=== PATIENT | male | born 1960 | race Caucasian/White ===

== ENCOUNTER 2021-01-07 13:57 | Inpatient (IN) ==
[2021-01-07] MEDS ORDERED: THIAMINE 200 MG/2 ML VIAL IV STA (14:28)
[2021-01-07] MEDS ORDERED: MORPHINE 4 MG/1 ML VIAL ONE (14:41)
[2021-01-07] MEDS ORDERED: MORPHINE 4 MG/1 ML VIAL IV STA (14:44)
[2021-01-07 14:55] LABS: Basophils # 0.1 10*3/uL (0.0-0.2); Basophils % 0.6 % (0.0-0.8); Eosinophils # 0.2 10*3/uL (0.0-0.87); Eosinophils % 2.5 % (0.00-10.9); Hematocrit 21.1 VOL% (42.0-52.0); Hemoglobin 7.1 GM/DL (14.0-18.0); Immature Granulocytes % 0.7 %; Immature Granulocytes Absolute 0.06 #; Lymphocytes # 0.8 10*3/uL (1.4-4.0); Mean Corpuscular HGB Conc 33.6 GM/DL (32-36); Mean Corpuscular Volume 97.2 FL (87-102); Mean Platelet Volume 10.7 FL (9.6-12.0); Monocytes % 13.3 % (1.7-12.7); Neutrophils % 72.9 % (38.7-73.9); Platelet Count 70 T/CUMM (130-400); Red Blood Count 2.17 MC/CUMM (3.8-5.5); Red Cell Distribution Width 18.5 % (9.3-17.3)
[2021-01-07 15:06] LABS: Albumin 2.2 G/DL (3.4-5.0); Bilirubin,Total 7.7 MG/DL (0.2-1.0); Calcium 8.5 MG/DL (8.5-10.1); Osmolality,Calculated 259.5 MOS/KG (273-304); Potassium 5.2 MMOL/L (3.5-5.1); Total Protein 4.7 G/DL (5.0-7.5)
[2021-01-07 15:52] LABS: INR 1.6; PT Patient Result 16.5 SECS (9.8-11.9)
[2021-01-07 15:54] LABS: Partial Thromboplastin Time 48.3 SECS (23.9-33.8)
[2021-01-07] MEDS ORDERED: hydrALAZINE 20 MG/1 ML VIAL IV PRN (16:26)
[2021-01-07] MEDS ORDERED: DEXTROSE 50% 25 GM/50 ML VIAL IV PRN (16:26)
[2021-01-07] MEDS ORDERED: NICOTINE 21 MG/24 HR PATCH TRANSDERM PRN (16:26)
[2021-01-07] MEDS ORDERED: diphenhydrAMINE CAP 25 MG CAPSULE PO PRN (16:26)
[2021-01-07] MEDS ORDERED: ALBUTEROL/IPRATROPIUM 3 ML NEB RESP TX PRN (16:26)
[2021-01-07] MEDS ORDERED: BISACODYL 5 MG TABLET PO PRN (16:26)
[2021-01-07] MEDS ORDERED: CALCIUM CARBONATE CHEW 500 MG TABLET PO PRN (16:26)
[2021-01-07] MEDS ORDERED: ALUMINUM/MAGNES/SIMETH MAX STR 30 ML UDCUP PO PRN (16:26)
[2021-01-07] MEDS ORDERED: SIMETHICONE CHEW 125 MG TABLET PO PRN (16:26)
[2021-01-07] MEDS ORDERED: ONDANSETRON 4 MG/2 ML VIAL IV PRN (16:26)
[2021-01-07] MEDS ORDERED: PROMETHAZINE 25 MG TABLET PO PRN (16:26)
[2021-01-07] MEDS ORDERED: GLUCAGON 1 MG VIAL IM PRN (16:26)
[2021-01-07] MEDS ORDERED: guaiFENesin/DM ER 600-30 MG TABLET PO PRN (16:26)
[2021-01-07] MEDS ORDERED: SODIUM CHLORIDE 0.9% 1,000 ML IV PRN (16:34)
[2021-01-07 17:09] LABS: Ferritin 355.1 ng/ml (26-388)
[2021-01-07 17:11] LABS: Folate 17.1 NG/ML (5.38-24.0)
[2021-01-07] MEDS ORDERED: LACTULOSE 20 GM/30 ML UDCUP PO SCH (21:00)
[2021-01-07] MEDS: cefTRIAXone 1,000 MG in SYRINGE 1 EACH IV SCH (22:32)
[2021-01-07] MEDS: AZITHROMYCIN INJ 500 MG in SODIUM CHLORIDE 0.9% 250 ML IV SCH (22:35)
[2021-01-08 05:59] LABS: Basophils # 0.1 10*3/uL (0.0-0.2); Eosinophils # 0.3 10*3/uL (0.0-0.87); Eosinophils % 5.4 % (0.00-10.9); Hematocrit 25.5 VOL% (42.0-52.0); Immature Granulocytes % 0.3 %; Immature Granulocytes Absolute 0.02 #; Lymphocytes # 0.8 10*3/uL (1.4-4.0); Lymphocytes % 13.8 % (21.2-54.2); Mean Corpuscular HGB Conc 34.1 GM/DL (32-36); Mean Corpuscular Volume 92.1 FL (87-102); Mean Platelet Volume 10.8 FL (9.6-12.0); Monocytes % 15.5 % (1.7-12.7); Red Cell Distribution Width 17.3 % (9.3-17.3); White Blood Count 5.9 T/CUMM (4-12)
[2021-01-08 06:11] LABS: Hemoglobin 8.7 GM/DL (14.0-18.0); Platelet Count 46 T/CUMM (130-400); Red Blood Count 2.77 MC/CUMM (3.8-5.5)
[2021-01-08 06:21] LABS: Calcium 8.2 MG/DL (8.5-10.1); Osmolality,Calculated 264.1 MOS/KG (273-304); Potassium 4.8 MMOL/L (3.5-5.1)
[2021-01-08 06:28] LABS: Bilirubin,Direct 2.71 MG/DL (0.0-0.20); Bilirubin,Indirect 5.8 MG/DL (0.0-1.0); Bilirubin,Total 8.5 MG/DL (0.2-1.0); Burr Cells Slight; Hypochromasia 1+; Microcytosis 1+; Ovalocytes Slight; Platelet Estimate Decreased; Total Protein 4.6 G/DL (5.0-7.5)
[2021-01-08 08:58] LABS: % Iron Saturation 99.2 % (18-50)
[2021-01-08 09:44] LABS: Hepatitis B Core IgM Quant 0.45 Index; Hepatitis B Surface Ag Quant < 0.10 Index; Hepatitis B Surface Ag Result Non-Reactive (NonReactive); Hepatitis C Virus Ab Quant 0.06 Index; Hepatitis C Virus Ab Result Non-Reactive (NonReactive)
[2021-01-08] MEDS ORDERED: ALBUMIN 25% 50 GM in PREMIX 1 EACH IV ONE (10:00)
[2021-01-08] MEDS: PANTOPRAZOLE 40 MG TABLET PO SCH (10:01)
[2021-01-08] MEDS: FUROSEMIDE 20 MG TABLET PO SCH (10:01)
[2021-01-08] MEDS: LACTULOSE 20 GM/30 ML UDCUP PO SCH ×4 (10:01→21:48)
[2021-01-08] MEDS: SPIRONOLACTONE 50 MG TABLET PO SCH (10:01)
[2021-01-08] MEDS: cefTRIAXone 1,000 MG in SYRINGE 1 EACH IV SCH (21:48)
[2021-01-08] MEDS: AZITHROMYCIN INJ 500 MG in SODIUM CHLORIDE 0.9% 250 ML IV SCH (22:02)
[2021-01-09] MEDS: LACTULOSE 20 GM/30 ML UDCUP PO SCH ×7 (02:40→22:08)
[2021-01-09 06:46] LABS: Calcium 8.8 MG/DL (8.5-10.1); Osmolality,Calculated 261.4 MOS/KG (273-304); Potassium 4.3 MMOL/L (3.5-5.1)
[2021-01-09 07:48] LABS: Albumin 2.4 G/DL (3.4-5.0); Bilirubin,Total 7.2 MG/DL (0.2-1.0); Calcium 8.7 MG/DL (8.5-10.1); Osmolality,Calculated 262.4 MOS/KG (273-304); Potassium 4.3 MMOL/L (3.5-5.1); Total Protein 4.7 G/DL (5.0-7.5)
[2021-01-09 08:44] LABS: Basophils # 0.1 10*3/uL (0.0-0.2); Basophils % 1.5 % (0.0-0.8); Eosinophils # 0.2 10*3/uL (0.0-0.87); Eosinophils % 5.9 % (0.00-10.9); Hematocrit 22.8 VOL% (42.0-52.0); Hemoglobin 7.6 GM/DL (14.0-18.0); Immature Granulocytes % 0.3 %; Immature Granulocytes Absolute 0.01 #; Lymphocytes # 0.8 10*3/uL (1.4-4.0); Lymphocytes % 22.4 % (21.2-54.2); Mean Corpuscular HGB Conc 33.3 GM/DL (32-36); Mean Corpuscular Volume 94.6 FL (87-102); Mean Platelet Volume 10.7 FL (9.6-12.0); Monocytes % 17.6 % (1.7-12.7); Neutrophils % 52.3 % (38.7-73.9); Red Blood Count 2.41 MC/CUMM (3.8-5.5); Red Cell Distribution Width 17.9 % (9.3-17.3); White Blood Count 3.4 T/CUMM (4-12)
[2021-01-09 08:48] LABS: Platelet Count 40 T/CUMM (130-400)
[2021-01-09 09:11] LABS: Eosinophils 3 % (0-10); Hypochromasia 1+; Lymphocytes 32 % (20-55); Microcytosis 1+; Platelet Estimate Decreased; Segmented Neutrophils 50 % (50-85); Total Cells Counted 100
[2021-01-09] MEDS: SPIRONOLACTONE 50 MG TABLET PO SCH (09:12)
[2021-01-09] MEDS: FUROSEMIDE 20 MG TABLET PO SCH (09:12)
[2021-01-09] MEDS: PANTOPRAZOLE 40 MG TABLET PO SCH (09:12)
[2021-01-09] MEDS ORDERED: LORazepam 2 MG/1 ML VIAL IV PRN (11:44)
[2021-01-09] MEDS ORDERED: SODIUM CHLORIDE 0.9% 1,000 ML IV PRN (11:46)
[2021-01-09] MEDS: MORPHINE 4 MG/1 ML VIAL IV PRN (15:52)
[2021-01-09] MEDS: cefTRIAXone 1,000 MG in SYRINGE 1 EACH IV SCH (22:06)
[2021-01-09] MEDS: AZITHROMYCIN INJ 500 MG in SODIUM CHLORIDE 0.9% 250 ML IV SCH (22:16)
[2021-01-10] MEDS: LACTULOSE 20 GM/30 ML UDCUP PO SCH ×6 (02:54→21:31)
[2021-01-10] MEDS ORDERED: SODIUM CHLORIDE 0.9% 1,000 ML IV PRN ×2 (03:27→07:22)
[2021-01-10 06:11] LABS: Basophils # 0.1 10*3/uL (0.0-0.2); Basophils % 1.2 % (0.0-0.8); Eosinophils # 0.3 10*3/uL (0.0-0.87); Eosinophils % 7.1 % (0.00-10.9); Hematocrit 30.3 VOL% (42.0-52.0); Hemoglobin 10.1 GM/DL (14.0-18.0); Immature Granulocytes % 0.2 %; Immature Granulocytes Absolute 0.01 #; Lymphocytes # 0.8 10*3/uL (1.4-4.0); Lymphocytes % 18.5 % (21.2-54.2); Mean Corpuscular HGB Conc 33.3 GM/DL (32-36); Mean Corpuscular Volume 94.1 FL (87-102); Mean Platelet Volume 10.6 FL (9.6-12.0); Red Blood Count 3.22 MC/CUMM (3.8-5.5); Red Cell Distribution Width 17.2 % (9.3-17.3); White Blood Count 4.1 T/CUMM (4-12)
[2021-01-10 06:15] LABS: INR 1.7; PT Patient Result 17.4 SECS (9.8-11.9)
[2021-01-10 06:20] LABS: Platelet Count 38 T/CUMM (130-400)
[2021-01-10 06:31] LABS: Calcium 8.6 MG/DL (8.5-10.1); Osmolality,Calculated 268.5 MOS/KG (273-304); Potassium 3.9 MMOL/L (3.5-5.1)
[2021-01-10 06:34] LABS: Albumin 2.4 G/DL (3.4-5.0); Bilirubin,Total 8.4 MG/DL (0.2-1.0); Calcium 8.7 MG/DL (8.5-10.1); Osmolality,Calculated 268.5 MOS/KG (273-304); Potassium 3.9 MMOL/L (3.5-5.1); Total Protein 4.8 G/DL (5.0-7.5)
[2021-01-10 06:37] LABS: Eosinophils 8 % (0-10); Lymphocytes 12 % (20-55); Segmented Neutrophils 65 % (50-85); Total Cells Counted 100
[2021-01-10 06:38] LABS: Hypochromasia 1+; Microcytosis 1+; Target Cells Slight
[2021-01-10 06:39] LABS: Acanthocytes Few; Platelet Estimate Decreased
[2021-01-10] MEDS: PANTOPRAZOLE 40 MG TABLET PO SCH (10:57)
[2021-01-10] MEDS: FUROSEMIDE 20 MG TABLET PO SCH (10:57)
[2021-01-10] MEDS: SPIRONOLACTONE 50 MG TABLET PO SCH (10:57)
[2021-01-10] MEDS ORDERED: ALBUMIN 25% 12.5 GM/50 ML VIAL IV ONE (16:58)
[2021-01-10] MEDS ORDERED: ALBUMIN 25% 12.5 GM in PREMIX 1 EACH IV ONE (17:01)
[2021-01-10 18:11] LABS: Neutrophils,Peritoneal Fluid 35 %; RBC,Peritoneal Fluid 30 T/CUMM
[2021-01-10] MEDS: MORPHINE 4 MG/1 ML VIAL IV PRN (19:10)
[2021-01-10 19:46] LABS: Bilirubin,Urine Negative (Negative); Blood, Urine Negative (Negative); Glucose,Urine (UA) Negative (Negative); Hyaline Casts,Urine 9 /LPF (0-3); Ketones,Urine Negative (Negative); Mucus,Urine Occasional /LPF (Occasional); Nitrite,Urine Negative (Negative); Protein,Urine Negative; Squamous Epithelial Cell,Urine Occasional /HPF (0-10); Urine Appearance CLEAR (Clear); Urine Color Amber (Yellow); Urine Specific Gravity 1.011 (1.001-1.035); WBC,Urine 1 /HPF (0-6)
[2021-01-10] MEDS: cefTRIAXone 1,000 MG in SYRINGE 1 EACH IV SCH (20:29)
[2021-01-10] MEDS: AZITHROMYCIN INJ 500 MG in SODIUM CHLORIDE 0.9% 250 ML IV SCH (20:31)
[2021-01-10] MEDS: ZALEPLON 5 MG CAPSULE PO PRN (20:38)
[2021-01-11] MEDS: LACTULOSE 20 GM/30 ML UDCUP PO SCH ×6 (02:19→21:01)
[2021-01-11 06:18] LABS: Basophils # 0.1 10*3/uL (0.0-0.2); Basophils % 1.2 % (0.0-0.8); Eosinophils # 0.2 10*3/uL (0.0-0.87); Eosinophils % 5.1 % (0.00-10.9); Hematocrit 26.8 VOL% (42.0-52.0); Hemoglobin 9.4 GM/DL (14.0-18.0); Immature Granulocytes % 0.2 %; Immature Granulocytes Absolute 0.01 #; Lymphocytes # 0.6 10*3/uL (1.4-4.0); Lymphocytes % 13.3 % (21.2-54.2); Mean Corpuscular HGB Conc 35.1 GM/DL (32-36); Mean Corpuscular Volume 92.4 FL (87-102); Mean Platelet Volume 10.7 FL (9.6-12.0); Monocytes % 17.9 % (1.7-12.7); Neutrophils % 62.3 % (38.7-73.9); Red Cell Distribution Width 17.4 % (9.3-17.3); White Blood Count 4.1 T/CUMM (4-12)
[2021-01-11 06:23] LABS: Platelet Count 36 T/CUMM (130-400)
[2021-01-11 06:40] LABS: Calcium 8.6 MG/DL (8.5-10.1); Hypochromasia 1+; Microcytosis 1+; Osmolality,Calculated 268.4 MOS/KG (273-304); Platelet Estimate Decreased; Potassium 3.4 MMOL/L (3.5-5.1)
[2021-01-11] MEDS: PANTOPRAZOLE 40 MG TABLET PO SCH (09:40)
[2021-01-11] MEDS ORDERED: ALBUMIN 25% 25 GM in PREMIX 1 EACH IV ONE (10:00)
[2021-01-11] MEDS: FUROSEMIDE 20 MG TABLET PO SCH (11:51)
[2021-01-11] MEDS: SPIRONOLACTONE 50 MG TABLET PO SCH (11:53)
[2021-01-11 13:59] LABS: Basophils # 0.1 10*3/uL (0.0-0.2); Basophils % 1.2 % (0.0-0.8); Eosinophils # 0.2 10*3/uL (0.0-0.87); Eosinophils % 4.7 % (0.00-10.9); Hematocrit 27.2 VOL% (42.0-52.0); Hemoglobin 9.4 GM/DL (14.0-18.0); Immature Granulocytes % 0.2 %; Immature Granulocytes Absolute 0.01 #; Lymphocytes # 0.6 10*3/uL (1.4-4.0); Lymphocytes % 13.9 % (21.2-54.2); Mean Corpuscular HGB Conc 34.6 GM/DL (32-36); Mean Corpuscular Volume 92.8 FL (87-102); Mean Platelet Volume 10.4 FL (9.6-12.0); Monocytes % 16.6 % (1.7-12.7); Neutrophils % 63.4 % (38.7-73.9); Red Blood Count 2.93 MC/CUMM (3.8-5.5); Red Cell Distribution Width 17.2 % (9.3-17.3)
[2021-01-11 14:01] LABS: Platelet Count 32 T/CUMM (130-400)
[2021-01-11] MEDS: POTASSIUM CHLORIDE 20 MEQ/15 ML UDCUP PER TUBE PRN ×2 (14:14→21:02)
[2021-01-11 14:21] LABS: Eosinophils 3 % (0-10); Lymphocytes 9 % (20-55); Segmented Neutrophils 80 % (50-85); Total Cells Counted 100
[2021-01-11 14:29] LABS: Burr Cells Slight; Platelet Estimate Decreased; Poikilocytosis Few; Target Cells Slight
[2021-01-11] MEDS: AZITHROMYCIN INJ 500 MG in SODIUM CHLORIDE 0.9% 250 ML IV SCH (21:02)
[2021-01-11] MEDS: ZALEPLON 5 MG CAPSULE PO PRN (21:02)
[2021-01-11] MEDS: cefTRIAXone 1,000 MG in SYRINGE 1 EACH IV SCH (21:02)
[2021-01-12 04:59] LABS: Basophils # 0.1 10*3/uL (0.0-0.2); Basophils % 1.2 % (0.0-0.8); Eosinophils # 0.2 10*3/uL (0.0-0.87); Eosinophils % 4.7 % (0.00-10.9); Hematocrit 29.1 VOL% (42.0-52.0); Hemoglobin 9.9 GM/DL (14.0-18.0); Immature Granulocytes % 0.2 %; Immature Granulocytes Absolute 0.01 #; Lymphocytes # 0.7 10*3/uL (1.4-4.0); Lymphocytes % 13.2 % (21.2-54.2); Mean Corpuscular Volume 94.2 FL (87-102); Mean Platelet Volume 10.1 FL (9.6-12.0); Monocytes % 17.5 % (1.7-12.7); Neutrophils % 63.2 % (38.7-73.9); Red Blood Count 3.09 MC/CUMM (3.8-5.5); Red Cell Distribution Width 17.3 % (9.3-17.3); White Blood Count 4.9 T/CUMM (4-12)
[2021-01-12 05:03] LABS: Platelet Count 33 T/CUMM (130-400)
[2021-01-12 05:15] LABS: Calcium 8.5 MG/DL (8.5-10.1); Osmolality,Calculated 261.7 MOS/KG (273-304); Potassium 3.7 MMOL/L (3.5-5.1)
[2021-01-12 05:20] LABS: Band Neutrophils 1 % (0-10); Eosinophils 5 % (0-10); Lymphocytes 11 % (20-55); Segmented Neutrophils 73 % (50-85); Total Cells Counted 100
[2021-01-12 05:21] LABS: Hypochromasia 1+; Microcytosis 1+
[2021-01-12 05:22] LABS: Platelet Estimate Decreased
[2021-01-12] MEDS ORDERED: SODIUM CHLORIDE 0.9% 1,000 ML IV PRN (09:01)
[2021-01-12] MEDS: FUROSEMIDE 20 MG TABLET PO SCH (09:18)
[2021-01-12] MEDS: PANTOPRAZOLE 40 MG TABLET PO SCH (09:18)
[2021-01-12] MEDS: LACTULOSE 20 GM/30 ML UDCUP PO SCH (09:18)
[2021-01-12] MEDS: SPIRONOLACTONE 50 MG TABLET PO SCH (09:18)
[2021-01-12] MEDS ORDERED: MAGNESIUM SULF RIDER 4 GM in PREMIX 1 EACH IV ONE (11:00)
[2021-01-12 12:38] VITALS: BP 99/58
== END 2021-01-12 16:53 | disposition home or self-care (01) | DRG 280 ==
LOC: EDUNIT# → EDBD → N.ED 13:57 → N.5E 16:26 → SUATTDRO 16:26 → N.5E 18:09
PROVIDERS: ADMIT Internal Medicine; ATTEND Internal Medicine